=== PATIENT | male | born 1930 | race Caucasian/White ===

== ENCOUNTER 2016-11-06 11:15 | Inpatient (IN) | payer SELFPAY ==
[2016-11-06] MEDS ORDERED: LEVAQUIN500 M1 PO (11:41)
[2016-11-06] MEDS ORDERED: ATORVASTATIN CA10 M1 PO (12:10)
[2016-11-06] MEDS ORDERED: TENORMIN50 M1 PO (12:10)
[2016-11-06] MEDS ORDERED: UROXATRAL10 M1 PO (12:11)
[2016-11-06] MEDS ORDERED: ZYLOPRIM100 M1 PO (12:11)
[2016-11-06] MEDS ORDERED: GLUCOPHAGE850 M1 PO (12:12)
[2016-11-06] MEDS ORDERED: [UNRECOGNIZED DRUG - OTHER] PO (12:12)
[2016-11-06 12:13] LABS: ABG CO2 ARTERIAL 24 mmol/L (21-27); ARTERIAL BLD GAS O2 SATURATION 96 % (95-98); ARTERIAL BLOOD GAS PCO2 36 mmHg (32-45); ARTERIAL PO2 77 mmHg (70-100); BICARBONATE 23 mmol/L (21-28); BLOOD GAS BASE EXCESS -1 mM/L (-/+3); PH 7.42 Units (7.35-7.45)
[2016-11-06 12:13] LABS: BASO % 0.2 % (0-2); EOS % 2.4 % (0-7); EOSINOPHIL ABSOLUTE COUNT 0.1 tho/cmm (0.0-0.7); HCT-HEMATOCRIT 34.4 % (36.0-53.5); HGB-HEMOGLOBIN 11.8 gm/dl (13.5-17.0); IMMATURE GRANULOCYTES ABSOLUTE 0.01 tho/cmm (0-0.03); IMMATURE GRANULOCYTES PERCENT 0.2 % (0-0.3); LYMPH % 29.9 % (20-45); LYMPH ABSOLUTE COUNT 1.7 tho/cmm (0.8-4.5); MCH (MEAN CORPUSCULAR HGB) 31.4 pg (28.0-32.0); MCHC MEAN CORPUSCULAR HGB CONC 34.3 % (32.0-36.0); MCV (MEAN CELL VOLUME) 91.5 fl (82.0-96.0); MEAN PLATELET VOLUME 10.1 cmc (9.4-12.4); MONO % 11.9 % (0-12); MONOCYTE ABSOLUTE COUNT 0.7 tho/cmm (0.0-1.2); NEUTROPHIL ABSOLUTE COUNT 3.2 tho/cmm (1.6-8.0); NEUTROPHIL-AUTOMATED 3.2 tho/cmm (1.6-8.0); NEUTROPHILS % 55.4 % (40-80); PLATELET COUNT 129 tho/cmm (150-450); RED BLOOD COUNT 3.76 mil/cmm (4.40-5.70); WHITE BLOOD COUNT 5.8 tho/cmm (4.0-10.0)
[2016-11-06] MEDS ORDERED: AVODART0.5 M1 PO (12:13)
[2016-11-06] MEDS ORDERED: COZAAR50 M1 PO (12:13)
[2016-11-06 12:14] LABS: INR 1.3 INR (0.9-1.1); PROTHROMBIN TIME 15.7 SECONDS (9.0-13.6)
[2016-11-06] MEDS ORDERED: ELIQUIS5 M1 PO (12:14)
[2016-11-06] MEDS ORDERED: FEOSOL325 M1 PO (12:14)
[2016-11-06] MEDS ORDERED: B COMPLEX1 EAC1 PO (12:14)
[2016-11-06] MEDS ORDERED: NORVASC5 M2 PO (12:15)
[2016-11-06] MEDS ORDERED: VITAMIN D350000 UNI1 PO (12:15)
[2016-11-06] MEDS ORDERED: PROBIOTIC1 EA10 PO (12:22)
[2016-11-06 12:30] LABS: ALB/GLOB RATIO 0.7 (0.8-2.0); ALBUMIN 2.7 g/dl (3.5-5.0); ALKALINE PHOSPHATASE 58 U/L (33-138); ALT/SGPT 20 U/L (12-78); ANION GAP 14 mmol/L (0-20); AST/SGOT 21 U/L (10-40); BILIRUBIN,TOTAL 0.3 mg/dl (0.0-1.5); BLOOD UREA NITROGEN 23 mg/dl (6-24); CALCIUM 7.7 mg/dl (8.5-10.5); CARBON DIOXIDE-VENOUS 23 mmol/L (22-32); CHLORIDE 106 mmol/l (96-110); CREATININE 1.46 mg/dl (0.60-1.30); GLUCOSE 132 mg/dL (70-110); SODIUM 139 mmol/L (135-145); eGFR VALUE FOR BLACK 50 mL/Min
[2016-11-06 13:11] LABS: PROCALCITONIN <0.05 ng/ml (0.05-0.09)
[2016-11-06] MEDS ORDERED: AMITRIPTYLINE H25 M1 PO (20:26)
[2016-11-06] MEDS ORDERED: [UNRECOGNIZED DRUG - OTHER] PO (20:29)
[2016-11-07 05:32] LABS: BASO % 0.3 % (0-2); EOS % 2.8 % (0-7); EOSINOPHIL ABSOLUTE COUNT 0.2 tho/cmm (0.0-0.7); HCT-HEMATOCRIT 33.4 % (36.0-53.5); HGB-HEMOGLOBIN 11.1 gm/dl (13.5-17.0); IMMATURE GRANULOCYTES ABSOLUTE 0.01 tho/cmm (0-0.03); IMMATURE GRANULOCYTES PERCENT 0.2 % (0-0.3); LYMPH ABSOLUTE COUNT 1.6 tho/cmm (0.8-4.5); MCH (MEAN CORPUSCULAR HGB) 30.5 pg (28.0-32.0); MCHC MEAN CORPUSCULAR HGB CONC 33.2 % (32.0-36.0); MCV (MEAN CELL VOLUME) 91.8 fl (82.0-96.0); MEAN PLATELET VOLUME 10.1 cmc (9.4-12.4); MONO % 9.2 % (0-12); MONOCYTE ABSOLUTE COUNT 0.6 tho/cmm (0.0-1.2); NEUTROPHIL ABSOLUTE COUNT 4.1 tho/cmm (1.6-8.0); NEUTROPHIL-AUTOMATED 4.1 tho/cmm (1.6-8.0); NEUTROPHILS % 63.5 % (40-80); PLATELET COUNT 148 tho/cmm (150-450); RED BLOOD COUNT 3.64 mil/cmm (4.40-5.70); RED CELL DISTRIBUTION WIDTH 13.9 % (12.4-16.4); WHITE BLOOD COUNT 6.5 tho/cmm (4.0-10.0)
[2016-11-07 05:42] LABS: ANION GAP 12 mmol/L (0-20); BLOOD UREA NITROGEN 16 mg/dl (6-24); CALCIUM 7.7 mg/dl (8.5-10.5); CARBON DIOXIDE-VENOUS 25 mmol/L (22-32); CHLORIDE 109 mmol/l (96-110); GLUCOSE 101 mg/dL (70-110); POTASSIUM 4.3 mmol/L (3.7-5.1); SODIUM 142 mmol/L (135-145); eGFR VALUE FOR BLACK 64 mL/Min
[2016-11-08 06:46] LABS: ANION GAP 13 mmol/L (0-20); BLOOD UREA NITROGEN 13 mg/dl (6-24); CALCIUM 7.6 mg/dl (8.5-10.5); CARBON DIOXIDE-VENOUS 23 mmol/L (22-32); CHLORIDE 113 mmol/l (96-110); GLUCOSE 96 mg/dL (70-110); POTASSIUM 3.8 mmol/L (3.7-5.1); SODIUM 145 mmol/L (135-145); eGFR VALUE FOR BLACK 79 mL/Min
[2016-11-08] MEDS ORDERED: TAMIFLU6 MG/1 M1 PO (08:19)
[2016-11-08] MEDS ORDERED: MUCINEX600 M1 PO (08:20)
[2016-11-08] MEDS ORDERED: MIRALAX17 G2 PO (08:22)
== END 2016-11-08 11:30 | DRG 152 ==
LOC: EDMED 11:15 → EMR2 17:47 → CAR1 19:42
PROVIDERS: Emergency Medicine; Physician Assistant; ADMIT Hospitalist
DX: J11.1 Influenza due to unidentified influenza virus with other respiratory manifestations (principal); J96.01 Acute respiratory failure with hypoxia; N17.9 Acute kidney failure, unspecified; D69.6 Thrombocytopenia, unspecified; E86.0 Dehydration; D64.9 Anemia, unspecified; E11.9 Type 2 diabetes mellitus without complications; J12.9 Viral pneumonia, unspecified; N18.9 Chronic kidney disease, unspecified; I12.9 Hypertensive chronic kidney disease with stage 1 through stage 4 chronic kidney disease, or unspecified chronic kidney disease; Z79.01 Long term (current) use of anticoagulants; Z86.711 Personal history of pulmonary embolism; Z86.718 Personal history of other venous thrombosis and embolism
CPT/HCPCS: A9540; A9558; C8929; G8987-GO-CJ; G8988-GO-CI; G8989-GO-CJ; J1956; J7030